=== PATIENT | male | born 1995 ===

== ENCOUNTER → 2017-03-11 | Day surgery (SDC) | payer OTHER ==
[2017-02-19 11:19] VITALS: Ht 185.4 cm; Wt 79.5 kg
[~2017-03-11] VITALS: Ht 185.4 cm; Wt 79.5 kg
[~2017-03-11] MED LIST: CEFAZOLIN 1000MG/55 ML D5W IV SCH; LACTATED RINGER'S 1000ML 1,000 ML IV SCH
== END | disposition home or self-care (01) ==
LOC: EDSTATUS 03-10 07:00 → C.PAT 15:34
PROVIDERS: ATTEND Orthopaedic Surgery Sports Medicine
DX: S83.511A Sprain of anterior cruciate ligament of right knee, initial encounter (principal); Z53.9 Procedure and treatment not carried out, unspecified reason